=== PATIENT | female | born 1955 | race Caucasian/White ===

== ENCOUNTER 2016-09-25 12:35 | Emergency (ER) | payer OTHER, SELFPAY ==
[~2016-09-25] VITALS: Ht 162.6 cm; Wt 161.5 kg
[2016-09-25 15:42] LABS: BLOOD UREA NITROGEN 19 mg/dL (7-18)
[2016-09-25 15:47] LABS: ASPARTATE AMINO TRANSFERASE 19 U/L (15-37)
[2016-09-25 17:20] VITALS: BP 120/58
== END 2016-09-25 18:43 | disposition home or self-care (01) ==
LOC: ED 14:26
DX: L03.116 Cellulitis of left lower limb (principal); L03.115 Cellulitis of right lower limb
CPT/HCPCS: 36415; 71010; 80053; 83880; 85025; 93005; 93970; 99285

== ENCOUNTER 2016-12-25 17:14 | Emergency (ER) | payer OTHER ==
[~2016-12-25] VITALS: Ht 162.6 cm; Wt 162.4 kg
[2016-12-25 17:18] VITALS: BP 178/91
== END 2016-12-25 20:18 | disposition home or self-care (01) ==
LOC: ED 20:12
DX: K21.9 Gastro-esophageal reflux disease without esophagitis (principal); I87.2 Venous insufficiency (chronic) (peripheral); I87.8 Other specified disorders of veins; Z88.2 Allergy status to sulfonamides
CPT/HCPCS: 74220; 99284

== ENCOUNTER 2019-02-05 13:25 | Emergency (ER) | payer OTHER ==
[~2019-02-05] VITALS: Ht 162.6 cm; Wt 160.2 kg
[2019-02-05] MEDS ORDERED: NAPR-685 PO (13:57)
[2019-02-05] MEDS ORDERED: FLUT9.9S NAS (13:57)
[2019-02-05 14:54] VITALS: BP 157/56
== END 2019-02-05 15:13 | disposition home or self-care (01) ==
LOC: ED 15:00
DX: R10.33 Periumbilical pain (principal); I50.9 Heart failure, unspecified; E11.9 Type 2 diabetes mellitus without complications; K21.9 Gastro-esophageal reflux disease without esophagitis; E66.01 Morbid (severe) obesity due to excess calories; Z68.44 Body mass index [BMI] 60.0-69.9, adult; Z90.49 Acquired absence of other specified parts of digestive tract; Z88.2 Allergy status to sulfonamides
CPT/HCPCS: 76705; 99284